=== PATIENT | male | born 1940 ===

== ENCOUNTER 2017-11-05 06:12 | Emergency (ER) | payer MEDICARE ==
[2017-11-05 07:04] LABS: SQUAMOUS EPITHIAL 1 /hpf (0-5); URINE BILIRUBIN NEGATIVE (NEGATIVE); URINE BLOOD 3+ (NEGATIVE); URINE CLARITY Clear (Clear); URINE COLOR Yellow (YELLOW); URINE GLUCOSE (UA) NORMAL (Normal); URINE LEUKOCYTE ESTERASE NEG Leu/uL (Negative); URINE NITRATE NEGATIVE (NEGATIVE); URINE PROTEIN 2+ mg/dL (NEGATIVE)
--- NOTE | 2017-11-05 07:13 | C.PDOC ---
History Of Present Illness Patient with history of urinary retention, presents to the ER stating since last night he has been experiencing difficulty urinating and pelvic pressure. Patient states he has not seen his urologist in months. Upon arrival to the ED, patient was able to void, but states feels incomplete void. Patient denies fever , chills, nausea, vomiting, hematuria, back pain, weakness or numbness. Time Seen by Provider: 11/05/17 07:05 Chief Complaint (Nursing): Male Genitourinary History Per: Patient History/Exam Limitations: no limitations Onset/Duration Of Symptoms: Sudden Onset (Last night) Quality Of Discomfort: Pressure Past Medical History Reviewed: Historical Data, Nursing Documentation, Vital Signs Vital Signs: Last Vital Signs Temp 97.9 F 11/05/17 07:15 Pulse 54 L 11/05/17 07:15 Resp 18 11/05/17 07:15 BP 159/69 H 11/05/17 07:15 Pulse Ox 98 11/05/17 08:10 - Medical History PMH: Diabetes Other PMH: prostate problem Surgical History: Appendectomy Family History: States: No Known Family Hx - Social History Hx Alcohol Use: No Hx Substance Use: No Review Of Systems Constitutional: Negative for: Fever, Chills Gastrointestinal: Negative for: Nausea, Vomiting Genitourinary: Positive for: Other (difficulty urinating, pelvic pressure). Negative for: Hematuria Musculoskeletal: Negative for: Back Pain Neurological: Negative for: Weakness, Numbness, Headache Physical Exam - Physical Exam Appears: Non-toxic, No Acute Distress Skin: Warm, Dry, No Rash Head: Atraumatic, Normacephalic Eye(s): bilateral: Normal Inspection, EOMI Oral Mucosa: Moist Neck: Normal ROM Chest: Symmetrical Cardiovascular: Rhythm Regular, No Murmur Respiratory: Normal Breath Sounds, No Rales, No Rhonchi, No Stridor, No Wheezing Gastrointestinal/Abdominal: Normal Exam (abdominal exam performed after santoyo was placed), Soft, No Tenderness, No Distention, No Guarding, No Rebound Extremity: Normal ROM, No Tenderness, No Pedal Edema, No Swelling Neurological/Psych: Oriented x3, Normal Speech, Normal Motor ED Course And Treatment O2 Sat by Pulse Oximetry: 98 (RA) Pulse Ox Interpretation: Normal Medical Decision Making Medical Decision Making: UA reviewed with RBCs no nitrates. Patient reports feeling better after santoyo catheter inserted. Leg bag applied. Patient instructed to follow up with urologist Dr Castorena. Rx given. 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 - Scribe Statement The provider has reviewed the documentation as recorded by the Scribe Ade New All medical record entries made by the Scribe were at my direction and personally dictated by me. I have reviewed the chart and agree that the record accurately reflects my personal performance of the history, physical exam, medical decision making, and the department course for this patient. I have also personally directed, reviewed, and agree with the discharge instructions and disposition. Procedures - Catheter Insertion (Urinary) Prophylactic Antibiotic Given: No Bladder Scan/Ultrasound Used: No Preparation: Povidone-Iodine Type of Catheter Inserted: Santoyo Catheter Sammarinese Size: 16 Results: successfully catheterize-immediate flow, urine sent for UA/C&S Patient Tolerated Procedure: well Additional comments: As per NORMA Rosen Santoyo Catheter 16F inserted with 100cc clear urine observed
[2017-11-05 07:14] VITALS: O2SAT 98
[2017-11-05 07:18] VITALS: BP 159/69; PULSE 54; RESP 18; TEMP 97.9
== END 2017-11-05 07:38 | disposition home or self-care (01) ==
LOC: C.ER 06:12
DX: R33.9 Retention of urine, unspecified (principal); E11.9 Type 2 diabetes mellitus without complications

== ENCOUNTER 2017-11-06 11:36 | Emergency (ER) | payer MEDICARE ==
[2017-11-06 11:43] VITALS: RESP 18; TEMP 97.6
--- NOTE | 2017-11-06 11:54 | C.PDOC ---
History Of Present Illness REQUESTING LANDRUM REMOVAL.PLACED ON 11/05 FOR RETENTION. PS UNABLE TO WORK W LEG BAG. DRAINING WO DIFF. EXAM NAD LANDRUM IN PLACE, LEG BAG PRESENT MDM PT ADVISED RISK OF RECURRENT SX. ADVISED FU PREV INSTRUCTED Time Seen by Provider: 11/06/17 11:45 Chief Complaint (Nursing): Male Genitourinary History Per: Patient History/Exam Limitations: no limitations Onset/Duration Of Symptoms: Days Current Symptoms Are (Timing): Gone Recent travel outside of the [place] States: No Past Medical History Reviewed: Historical Data, Nursing Documentation, Vital Signs Vital Signs: Last Vital Signs Temp 97.6 F 11/06/17 11:39 Pulse 72 11/06/17 11:39 Resp 18 11/06/17 11:39 BP 168/74 H 11/06/17 11:39 Pulse Ox 96 11/06/17 12:29 - Medical History PMH: Diabetes, HTN Surgical History: Appendectomy Family History: States: No Known Family Hx - Social History Hx Alcohol Use: No Hx Substance Use: No - Immunization History Hx Influenza Vaccination: No Hx Pneumococcal Vaccination: No Review Of Systems Except As Marked, All Systems Reviewed And Found Negative. Constitutional: Negative for: Fever Gastrointestinal: Negative for: Abdominal Pain Genitourinary: Negative for: Dysuria, Hematuria Neurological: Negative for: Weakness, Numbness Physical Exam - Physical Exam Appears: Non-toxic, No Acute Distress Skin: Warm, Dry, No Rash Head: Atraumatic, Normacephalic Oral Mucosa: Moist Male Genital: Other (landrum in place, leg bag present) Extremity: Normal ROM, No Swelling Neurological/Psych: Oriented x3, Normal Speech, Normal Motor, Normal Sensation ED Course And Treatment O2 Sat by Pulse Oximetry: 96 (RA) Pulse Ox Interpretation: Normal Medical Decision Making Medical Decision Making: NOTE: patient advised risk of recurrent sx. Advised to follow up as previous instructed. Disposition Counseled Patient/Family Regarding: Diagnosis, Need For Followup - Disposition Referrals: Donta Castorena MD [Staff Provider] - Disposition: HOME/ ROUTINE Disposition Time: 11:53 Condition: GOOD Additional Instructions: EXISTE RIESGO DE SNTOMAS RECURRENTES DEBIDO A LA RETIRADA DEL CATTER. CONTINUAR MEDICAMENTOS SEGN LO PRESCRITO. SEGUIMIENTO CON NAIDU UROLOGISTA. Forms: [employer] (Greek), General Discharge Instructions Print Language: UZBEK - Clinical Impression Clinical Impression: Encounter for Landrum catheter removal - Scribe Statement The provider has reviewed the documentation as recorded by the Riveraibe Ade New Provider Attestation: All medical record entries made by the Scribe were at my direction and personally dictated by me. I have reviewed the chart and agree that the record accurately reflects my personal performance of the history, physical exam, medical decision making, and the department course for this patient. I have also personally directed, reviewed, and agree with the discharge instructions and disposition.
[2017-11-06 12:34] VITALS: BP 140/80; PULSE 65; O2SAT 97
== END 2017-11-06 12:34 | disposition home or self-care (01) ==
LOC: C.ER 11:36
DX: Z46.6 Encounter for fitting and adjustment of urinary device (principal)

== ENCOUNTER 2018-08-25 08:17 | Emergency (ER) | payer MEDICARE ==
[2018-08-25] MEDS ORDERED: Tdap Vaccine 0.5 ml Vial (10-64 yrs) IM ONE ×2 (08:54→09:40)
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
[2018-08-25 11:01] VITALS: BP 149/67; PULSE 87; TEMP 98.9
[2018-08-25 11:07] VITALS: RESP 19
[2018-08-25 17:21] VITALS: O2SAT 100
== END 2018-08-25 11:06 | disposition home or self-care (01) ==
LOC: C.ER 08:17
DX: S05.12XA Contusion of eyeball and orbital tissues, left eye, initial encounter (principal); W01.0XXA Fall on same level from slipping, tripping and stumbling without subsequent striking against object, initial encounter; Y92.9 Unspecified place or not applicable

== ENCOUNTER 2018-12-13 06:30 | Emergency (ER) | payer MEDICARE ==
[2018-12-13 06:40] VITALS: TEMP 98.6; O2SAT 99
[2018-12-13] MEDS ORDERED: Lidocaine 2% Jelly (Uro-Jet) ONE (06:47)
--- NOTE | 2018-12-13 06:48 | C.PDOC ---
History Of Present Illness patient presents with acute urinary retention., Last voided around midnight. No f/c/n/v. Has appointment with his urologist today Time Seen by Provider: 12/13/18 06:45 Chief Complaint (Nursing): Male Genitourinary History Per: Patient History/Exam Limitations: no limitations Onset/Duration Of Symptoms: Hrs Current Symptoms Are (Timing): Worse Severity: Severe Pain Scale Rating Of: 8 Quality Of Discomfort: Pressure Associated Symptoms: Urinary Symptoms. denies: Fever, Chills Alleviating Factors: None Recent travel outside of the [place]: No Additional History Per: Patient Past Medical History Reviewed: Historical Data, Nursing Documentation, Vital Signs Vital Signs: Last Vital Signs Temp 98.6 F 12/13/18 06:34 Pulse 117 H 12/13/18 06:34 Resp 22 12/13/18 06:34 BP 205/89 H 12/13/18 06:34 Pulse Ox 99 12/13/18 06:34 - Medical History PMH: Cardia Arrhythmia (tachycardia), Diabetes, HTN Surgical History: Appendectomy Family History: States: No Known Family Hx - Social History Hx Alcohol Use: No Hx Substance Use: No - Immunization History Hx Influenza Vaccination: No Hx Pneumococcal Vaccination: No Review Of Systems Constitutional: Negative for: Fever, Chills Gastrointestinal: Negative for: Nausea, Vomiting Genitourinary: Positive for: Other (urinary retention) Neurological: Negative for: Weakness Psych: Negative for: Anxiety Physical Exam - Physical Exam Appears: In Acute Distress Skin: Warm, Dry Chest: Symmetrical Cardiovascular: Rhythm Regular Respiratory: No Rales, No Rhonchi, No Wheezing Gastrointestinal/Abdominal: Soft, Tenderness, Distention (suprapubic), Other (globus vesicalis) Male Genital: No Testicular Tenderness, No Testicular Swelling, No Circumcised Neurological/Psych: Oriented x3 Gait: Steady ED Course And Treatment O2 Sat by Pulse Oximetry: 99 Pulse Ox Interpretation: Normal Progress Note: I've placed an 18 fr santoyo without difficulty. Pt tolerated the procedure well. About 250-300 cc of urine drained, with instant relief Reevaluation Time: 06:49 Reassessment Condition: Improved Disposition Counseled Patient/Family Regarding: Studies Performed, Diagnosis, Need For Followup - Disposition Referrals: Donta Castorena MD [Staff Provider] - Disposition: HOME/ ROUTINE Disposition Time: 06:46 Condition: FAIR Instructions: Urinary Retention (DC), How to Care for Your Santoyo Catheter, Male, Santoyo Catheter, Male - Clinical Impression Clinical Impression: Urinary retention
[2018-12-13 06:56] VITALS: BP 170/80; PULSE 80; RESP 16
== END 2018-12-13 07:11 | disposition home or self-care (01) ==
LOC: C.ER 06:30
DX: R33.9 Retention of urine, unspecified (principal)

== ENCOUNTER 2018-12-15 09:08 | Emergency (ER) | payer MEDICARE ==
[2018-12-15 09:21] VITALS: BP 175/78; PULSE 82; RESP 18; TEMP 97.9; O2SAT 99
--- NOTE | 2018-12-15 09:56 | C.PDOC ---
History Of Present Illness 78 year old M with history of DM, HTN, Prostated disease presented to the ed requesing santoyo removal. Pt was seen here for urinary retention and has not seen his urologist. He wants to remove the santoyo because of discomfort. He denies any fever. chills or abdominal pain. Advised pt to make an appointment with his urologist so it can be romoved. Time Seen by Provider: 12/15/18 09:54 Chief Complaint (Nursing): Male Genitourinary Severity: None Quality Of Discomfort: Other (discomfort) Alleviating Factors: None Past Medical History Vital Signs: Last Vital Signs Temp 97.9 F 12/15/18 09:19 Pulse 82 12/15/18 09:19 Resp 18 12/15/18 09:19 BP 175/78 H 12/15/18 09:19 Pulse Ox 99 12/15/18 09:19 - Medical History PMH: Cardia Arrhythmia (tachycardia), Diabetes, HTN Surgical History: Appendectomy Family History: States: No Known Family Hx - Social History Hx Alcohol Use: No Hx Substance Use: No - Immunization History Hx Influenza Vaccination: No Hx Pneumococcal Vaccination: No Physical Exam - Physical Exam Appears: Well Skin: Normal Color Head: Atraumatic Eye(s): bilateral: Normal Inspection Ear(s): Bilateral: Normal Nose: Normal Tongue: Normal Appearing Teeth: Normal Dentition Throat: Normal Neck: Normal Lymphatic: Deferred Chest: Symmetrical Respiratory: Normal Breath Sounds Gastrointestinal/Abdominal: Normal Exam Rectal: Deferred Back: Normal Inspection Male Genital: Normal Inspection Extremity: Bilateral: Atraumatic ED Course And Treatment O2 Sat by Pulse Oximetry: 99 Medical Decision Making Medical Decision Makin78 year old M with history of prostate disease presented for santoyo removal will refer pt to urology clinic Disposition - Disposition Referrals: Donta Castorena MD [Staff Provider] - Disposition: HOME/ ROUTINE Disposition Time: 10:07 Condition: GOOD Additional Instructions: Please follow up with your urologist as soon as possible for evaluation before santoyo can be removed. Instructions: Urinary Retention (DC) Forms: [employer] (Guinean) - Clinical Impression Clinical Impression: Urinary retention
== END 2018-12-15 10:07 | disposition home or self-care (01) ==
LOC: C.ER 09:08
DX: R33.9 Retention of urine, unspecified (principal)

== ENCOUNTER 2019-01-13 16:46 | Emergency (ER) | payer MEDICARE ==
--- NOTE | 2019-01-13 17:10 | C.PDOC ---
History Of Present Illness 78 yr old male w/ hx of urinary retention, HTN, DM2, p/w difficulty urinating since yesterday. Pt notes multiple occurrences prior for which he usually has a santoyo placed and feels immideate relief. He denies any back pain, abdominal pain, fever, chills or night sweats. He denies any abnormal penile rashes, ulcers or penile discharge. No hx of STDS per pt or sexual activity in years. No fall or trauma. No headache. No fever, chills or night sweats . No chest pain or shortness of breath. No other complaints. Time Seen by Provider: 01/13/19 17:10 Chief Complaint (Nursing): Male Genitourinary Past Medical History Vital Signs: Last Vital Signs Temp 98.7 F 01/13/19 17:02 Pulse 121 H 01/13/19 17:02 Resp 18 01/13/19 17:02 BP 141/87 01/13/19 17:02 Pulse Ox 97 01/13/19 17:02 - Medical History PMH: Cardia Arrhythmia (tachycardia), Diabetes, HTN Surgical History: Appendectomy Family History: States: Unknown Family Hx - Social History Hx Alcohol Use: No Hx Substance Use: No - Immunization History Hx Tetanus Toxoid Vaccination: No Hx Influenza Vaccination: Yes Hx Pneumococcal Vaccination: No Review Of Systems Constitutional: Negative for: Fever, Chills, Sweats, Weakness, Malaise, Weight loss Eyes: Negative for: Pain, Vision Change ENT: Negative for: Ear Pain, Nose Discharge, Nose Congestion, Mouth Pain, Throat Pain, Throat Swelling Cardiovascular: Negative for: Chest Pain, Palpitations, Edema Respiratory: Negative for: Cough, Shortness of Breath Gastrointestinal: Negative for: Nausea, Vomiting, Abdominal Pain, Diarrhea, Hematochezia, Hematemesis, Rectal Pain Genitourinary: Positive for: Other (retaining urine). Negative for: Dysuria, Frequency, Incontinence, Hematuria, Penile Discharge, Scrotal Pain, Rash, Penile Pain Musculoskeletal: Negative for: Neck Pain, Shoulder Pain Skin: Negative for: Rash, Lesions Neurological: Negative for: Weakness, Numbness, Altered Mental Status, Headache Physical Exam - Physical Exam Appears: Well, Non-toxic, No Acute Distress Skin: Normal Color, Warm Head: Atraumatic, Normacephalic Eye(s): bilateral: Normal Inspection, PERRL, EOMI Ear(s): Bilateral: Normal Nose: Normal, No Flaring, No Discharge Oral Mucosa: Moist Tongue: Normal Appearing Throat: Normal, No Erythema, No Exudate Neck: Normal, Normal ROM, Supple, Other (no meningeal signs) Chest: Symmetrical Cardiovascular: Rhythm Regular, No Rhythm Irregular, No Edema, No Friction Rub, No Murmur, No JVD Respiratory: Normal Breath Sounds, No Rales, No Rhonchi, No Stridor, No Wheezing Gastrointestinal/Abdominal: Normal Exam, Soft, No Tenderness, No Mass, No Distention, No Guarding Back: Normal Inspection, No CVA Tenderness, No Vertebral Tenderness Extremity: Normal ROM, No Tenderness, No Pedal Edema, No Swelling Neurological/Psych: Oriented x3, Normal Speech, Normal Cognition ED Course And Treatment O2 Sat by Pulse Oximetry: 97 Medical Decision Making Medical Decision Makin78 year old male w/ hx of urinary retention p/w similiar complaint. No fall or trauma. No back pain. Santoyo placed by RN w/ good drainage and immideate relief. 400cc drained. Lorie urine, non pus like, non blood tinged and without blood clots. No abd pain or CVAT post santyoo placement. UTI on UA, given DM2, cipro ordered for outpt abx pt clear for d/c home with return indication and f/u, family and pt agreeable to plan. Disposition - Disposition Referrals: Donta Castorena MD [Staff Provider] - [facility] [Outside] [facility] [Outside] [facility] [Outside] Disposition: HOME/ ROUTINE Disposition Time: 18:10 Condition: STABLE Additional Instructions: FABIÁN LYNN, thank you for letting us take care of you today. Your provider was Xavier López and you were treated for MALE GENITOURINARY. The emergency medical care you received today was directed at your acute symptoms. If you were prescribed any medication, please fill it and take as directed. It may take several days for your symptoms to resolve. Return to the Emergency Department if your symptoms worsen, do not improve, or if you have any other problems. Please contact your doctor or call one of the physicians/clinics you have been referred to that are listed on the Patient Visit Information form that is included in your discharge packet. Bring any paperwork you were given at discharge with you along with any medications you are taking to your follow up visit. Our treatment cannot replace ongoing medical care by a primary care provider outside of the emergency department. Thank you for allowing the [facility] team to be part of your care today. If you had an X-Ray or CT scan: A Radiologist will review the ED reading if any change in treatment is needed we will contact you. If you had a blood, urine, or wound culture: It will take several days for the results, if any change in treatment is needed we will contact you. If you had an STI test: It will take 48 hours for the results. Please call after 1 week if you have not heard back. Prescriptions: Ciprofloxacin [Cipro] 500 mg PO BID 10 Days #20 tab Instructions: Santoyo Catheter, Male, Urinary Retention (DC) Forms: [employer] (Syrian) - Clinical Impression Clinical Impression: Urinary retention
[2019-01-13 17:20] VITALS: RESP 18; O2SAT 97
[2019-01-13 17:55] VITALS: BP 144/67; PULSE 80; TEMP 98.5
[2019-01-13 17:55] LABS: URINE BACTERIA MANY (<OCC); URINE BILIRUBIN NEGATIVE (NEGATIVE); URINE BLOOD 2+ (NEGATIVE); URINE CLARITY Hazy (Clear); URINE COLOR Yellow (YELLOW); URINE GLUCOSE (UA) 3+ mg/dL (Normal); URINE LEUKOCYTE ESTERASE 2+ Leu/uL (Negative); URINE PROTEIN 1+ mg/dL (NEGATIVE); URINE UROBILINOGEN NORMAL mg/dL (0.2-1.0); WBC CLUMPS FEW /hpf
== END 2019-01-13 18:54 | disposition home or self-care (01) ==
LOC: C.ER 16:46
DX: R33.9 Retention of urine, unspecified (principal)